=== PATIENT | male | born 1980 | race Asian ===

== ENCOUNTER 2019-03-19 17:49 | Emergency (ER) | payer SELFPAY ==
[~2019-03-19] VITALS: Ht 162.6 cm; Wt 58.1 kg
[2019-03-19 18:03] VITALS: BP 182/99
[2019-03-19] MEDS ORDERED: TDAP [DIPH/PERTUSSIS/TET] 0.5 ML VIAL IM ONE ×2 (18:24→18:30)
[2019-03-19] MEDS ORDERED: HYDROCODONE/APAP 5/325MG 1 EACH TABLET ONE (18:24)
[2019-03-19] MEDS ORDERED: HYDROCODONE/APAP 5/325MG 1 EACH TABLET PO ONE (18:30)
--- NOTE | 2019-03-19 18:30 | NUR ---
WOUND CLEANING DONE BY [employer]LO[employer]ITY ARCHITECT.
--- NOTE | 2019-03-19 18:38 | NUR ---
APPLICATION PENETRATION TESTER AT BEDSIDE FOR XRAY.
--- NOTE | 2019-03-19 19:17 | NUR ---
Patient discharged to home in stable condition. Written and verbal after care instructions given. Patient verbalizes understanding of instruction.
== END 2019-03-19 19:17 | disposition home or self-care (01) ==
LOC: ER 17:51
DX: S70.02XA Contusion of left hip, initial encounter (principal); S20.312A Abrasion of left front wall of thorax, initial encounter; V23.4XXA Motorcycle driver injured in collision with car, pick-up truck or van in traffic accident, initial encounter; Y93.89 Activity, other specified; Y92.488 Other paved roadways as the place of occurrence of the external cause; Y99.8 Other external cause status
CPT/HCPCS: 73503; 90471; 90715; 99283; J7040; 73502